=== PATIENT | male | born 1980 | race Caucasian/White ===

== ENCOUNTER 2020-02-05 00:01 | Emergency (ER) | payer SELFPAY ==
[~2020-02-05] VITALS: Ht 176.5 cm; Wt 95.0 kg
[2020-02-05 00:10] VITALS: BP 148/67
--- NOTE | 2020-02-05 00:41 | PHYS DOC ---
General Adult EDM: Chief Complaint: COLD EXPOSURE HPI: HPI: 39-year-old male presents to the emergency department via EMS after cold exposure. Patient is essentially homeless for the last 4 years and usually sleeps where ever he can find a place. Pat, apparently had stumbled and fell down and was found on the back porch of a home in the neighborhood and subsequently EMS and police were called. Attempted to find him a place to stay however no luck, therefor patient was brought to the ER. Patient denies any homicidal or suicidal ideation, he denies any auditory or visual hallucinations. Patient is tearful on examination. Review of Systems: Review of Systems: Constitutional: Denies fever or chills. [] Respiratory: Denies cough or shortness of breath. [] Cardiovascular: Denies chest pain or edema. [] GI: no abdominal pain, nausea, vomiting, bloody stools or diarrhea. [] : Denies dysuria. [] Musculoskeletal: Denies back pain or joint pain. [] Integument: Denies rash. [] Neurologic: Denies headache, focal weakness or sensory changes. [] Heart Score: Risk Factors: Risk Factors: DM, Current or recent (<one month) smoker, HTN, HLP, family history of CAD, obesity. Risk Scores: Score 0 - 3: 2.5% MACE over next 6 weeks - Discharge Home Score 4 - 6: 20.3% MACE over next 6 weeks - Admit for Clinical Observation Score 7 - 10: 72.7% MACE over next 6 weeks - Early Invasive Strategies Physical Exam: PE: Constitutional: Well developed, well nourished, no acute distress, non-toxic appearance. [] Cardiovascular:Heart rate regular rhythm, no murmur [] Lungs & Thorax: Bilateral breath sounds clear to auscultation [] Abdomen: Bowel sounds normal, soft, no tenderness, no masses, no pulsatile masses. [] Skin: Warm, dry, no erythema, no rash. [] Back: No tenderness, no CVA tenderness. [] Extremities: No tenderness, no edema. [] Neurologic: Alert and oriented X 3, no focal deficits noted. [] Psychologic: Affect normal, judgement normal, mood normal. [] EKG: EKG: [] Radiology/Procedures: Radiology/Procedures: [] Course & Med Decision Making: Course & Med Decision Making Pertinent Labs and Imaging studies reviewed. (See chart for details) [] 39-year-old male presents to the emergency department via EMS after cold exposure. Patient is essentially homeless for the last 4 years and usually sleeps where ever he can find a place. Pat, apparently had stumbled and fe ll down and was found on the back porch of a home in the neighborhood and subsequently EMS and police were called. Attempted to find him a place to stay however no luck, therefore patient was brought to the ER. Patient denies any homicidal or suicidal ideation, he denies any auditory or visual hallucinations. Patient is tearful on examination. Patient will be dc from the ER No labs or imaging obtained Attempt to provide cab pass vs other for patient's dc plans No clinical reason for admission Abe Disclaimer: Abe Disclaimer: This electronic medical record was generated, in whole or in part, using a voice recognition dictation system. Departure Departure Impression: Primary Impression: Cold exposure Qualified Codes: T69.9XXA - Effect of reduced temperature, unspecified, initial encounter Additional Impression: Homeless Disposition: 01 HOME, SELF-CARE Condition: STABLE Referrals: NO PCP (PCP) Patient Instructions: Medical Screening Exam Additional Instructions: Tylenol and Motrin as needed for pain No labs/imaging obtained Medical screening exam DARREL ESCALANTE MD Feb 05, 2020 00:41
== END 2020-02-05 05:45 | disposition home or self-care (01) ==
LOC: ER 00:01
DX: T69.9XXA Effect of reduced temperature, unspecified, initial encounter (principal); Z59.0 Homelessness; W18.39XA Other fall on same level, initial encounter; Y93.89 Activity, other specified; Y92.89 Other specified places as the place of occurrence of the external cause; Y99.8 Other external cause status
CPT/HCPCS: 99283